=== PATIENT | female | born 1980 | race Hispanic/Latino ===

== ENCOUNTER 2018-07-04 22:30 | Emergency (ER) | payer OTHER ==
[~2018-07-04] VITALS: Ht 154.9 cm; Wt 102.5 kg
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
[2018-07-05] MEDS ORDERED: IBUPROFEN 600 MG TAB PO STA
== END 2018-07-05 00:14 | disposition home or self-care (01) ==
LOC: ER 22:30
DX: S00.83XA Contusion of other part of head, initial encounter (principal); Y04.0XXA Assault by unarmed brawl or fight, initial encounter; Y92.488 Other paved roadways as the place of occurrence of the external cause
CPT/HCPCS: 70450; 99283

== ENCOUNTER 2019-05-12 09:39 | Emergency (ER) | payer OTHER ==
[~2019-05-12] VITALS: Ht 154.9 cm; Wt 102.5 kg
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
[2019-05-12] MEDS ORDERED: HYDROCODONE/APAP 10MG-325MG TAB PO ONE (10:00)
== END 2019-05-12 10:14 | disposition home or self-care (01) ==
LOC: ER 09:39
DX: K04.7 Periapical abscess without sinus (principal); K02.9 Dental caries, unspecified; K08.89 Other specified disorders of teeth and supporting structures
CPT/HCPCS: 99283